=== PATIENT | female | born 1990 | race African-American/Black ===

== ENCOUNTER 2022-06-17 02:41 | Emergency (ER) | payer MEDICAID, OTHER ==
[~2022-06-17] VITALS: Ht 170.2 cm; Wt 87.0 kg
[2022-06-17] MEDS ORDERED: HYDROCODONE/ACETAMINOPHEN 5/325MG TABLET PO ONE (04:30)
[2022-06-17 04:40] VITALS: BP 130/90
[2022-06-17] MEDS ORDERED: TOPUD PO (06:38)
== END 2022-06-17 06:51 | disposition home or self-care (01) ==
LOC: ER 02:41
DX: M54.2 Cervicalgia (principal); R51.9 Headache, unspecified; M79.601 Pain in right arm; M54.50 Low back pain, unspecified; V49.9XXA Car occupant (driver) (passenger) injured in unspecified traffic accident, initial encounter; Y93.89 Activity, other specified; Y92.89 Other specified places as the place of occurrence of the external cause; Y99.8 Other external cause status
CPT/HCPCS: 71045; 72100; 73060; 81025; 99284

== ENCOUNTER 2023-08-15 19:08 | Emergency (ER) | payer MEDICAID, OTHER ==
[~2023-08-15] VITALS: Ht 165.1 cm; Wt 92.5 kg
[~2023-08-15 19:08] MED LIST: TOPUD PO
[2023-08-15 19:17] VITALS: BP 137/81; PULSE 70; RESP 16; TEMP 98.1; O2SAT 99
[2023-08-15] MEDS ORDERED: CEPH500C2 MT (20:06)
== END 2023-08-16 09:21 | disposition home or self-care (01) ==
LOC: ER 19:08
DX: H00.015 Hordeolum externum left lower eyelid (principal)
CPT/HCPCS: 99283

== ENCOUNTER 2023-09-01 20:59 | Emergency (ER) | payer MEDICAID ==
[~2023-09-01] VITALS: Ht 165.1 cm; Wt 78.0 kg
[~2023-09-01 20:59] MED LIST changes: +CEPH500C2 MT
[2023-09-01] MEDS: ACETAMINOPHEN 500MG TABLET PO ONE (23:29)
[2023-09-01] MEDS ORDERED: IBUP-2029 MT (23:57)
[2023-09-01] MEDS ORDERED: AMOX1TAB16 MT (23:57)
[2023-09-02] MEDS: AMOXICILLIN/POTASSIUM CLAVULANATE 875/125MG TAB PO ONE (00:06)
[2023-09-02 00:20] VITALS: BP 133/87; PULSE 63; RESP 20; TEMP 98.9
== END 2023-09-02 00:24 | disposition home or self-care (01) ==
LOC: ER 20:59
DX: L03.211 Cellulitis of face (principal); Z79.899 Other long term (current) drug therapy
CPT/HCPCS: 70486; 81025; 99284